=== PATIENT | male | born 1970 | race African-American/Black ===

== ENCOUNTER 2021-03-27 19:09 | Emergency (ER) | payer MEDICAID, OTHER ==
[2021-03-27] MEDS ORDERED: Triamcinolone Acetonide 0.1% Crm 15 GM Tube TOP ONE (19:33)
--- NOTE | 2021-03-27 19:43 | EDM.PDOC ---
ED HPI GENERAL MEDICAL PROBLEM - General Chief Complaint: Skin Complaint Stated Complaint: ARMS AND LEGS ITCHING, POSSIBLE BUG BITES Time Seen by Provider: 03/27/21 19:24 - History of Present Illness INITIAL COMMENTS - FREE TEXT/NARRATIVE: CHIEF COMPLAINT(S): Rash HISTORY OF PRESENT ILLNESS: This is a 50-year-old man without any reported significant past medical history who comes to the emergency department with a chief complaint of rash. The patient states that for approximately 2 days now with me experiencing a painful itchy rash located in 3 spots 1 on his right neck, left posterior arm and left calf. He states the area are painful and rates them currently is 0 out of 10 but when you touch them it is about 2 out of 10. There is no radiation of this pain. He states that there was no exacerbating relieving factors. He does not know why he has this rash. He states that he was concerned about bedbugs so they moved him in a different room at his hotel. He states that these areas itch and he keeps wanting to scratch them. He denies any sore throat, drooling, wheezing, shortness of breath, abdominal pain, nausea or vomiting. He states that he is not in any new medications. He has tried Tylenol without any relief. REVIEW OF SYSTEMS: Constitutional: Denies fever, chills. Eyes: Denies eye pain Ears, Nose, Mouth, & Throat: Denies earache Cardiovascular: Denies chest pain Respiratory: Denies shortness of breath Gastrointestinal: Denies Nausea, vomiting, diarrhea, hematochezia. Genitourinary: Denies hematuria Skin: Positive for itching burning painful rash to the patient's right neck, left posterior arm and left calf MSK: Denies joint pain Neurological: Denies blurred vision, numbness, tingling, weakness Psychiatric: Denies depression PAST MEDICAL HISTORY: As per history of present illness and as reviewed below otherwise noncontributory. SURGICAL HISTORY: As per history of present illness and as reviewed below otherwise noncontributory. SOCIAL HISTORY: As per history of present illness and as reviewed below otherwise noncontributory. FAMILY HISTORY: As per history of present illness and as reviewed below otherwise noncontributory. EXAMINATION OF ORGAN SYSTEMS/BODY AREAS: Constitutional: Blood pressure is 131/71, heart rate 86, respiratory rate 20 with an oxygen saturation 95% on room air. Temperature 36.6 General: Well-appearing man who is in no acute distress Psychiatric: Appropriate mood and affect. Eyes: No scleral icterus or conjunctival erythema ENMT: Moist mucous membranes. No pharyngeal erythema no stridor, drooling, trismus Cardiovascular: Regular, rate, and rhythm. No gallops, murmurs, or rubs. Bilateral upper extremity pulses symmetric and intact. Respiratory: Lungs clear to auscultation bilaterally. No wheezes, rales, or rhonchi. Gastrointestinal: Soft, non-tender, non-distended. Normoactive bowel sounds Genitourinary: No suprapubic tenderness Musculoskeletal: Normal range of motion. Skin: The patient has 3 tiny red bumps one located on his right neck, left posterior arm and left calf which are tender to palpation. There is no evidence of any excoriations or erythema in between the webbing of his fingers or toes or in the antecubital fossa. There is no evidence of urticaria or any other abnormality on the patient's body Neurological: Alert, GCS 15 MEDICAL DECISION MAKING AND COURSE IN THE ED WITH INTERPRETATION/REVIEW OF DIAGNOSTIC STUDIES: This is a 50-year-old man without any past medical history reported who comes to the emergency department with itchy burning rash that does not appear to be an allergic reaction. At this time it is uncertain as if this is a bedbug bite however the patient has already switched rooms at his hotel room. There is no evidence of bedbugs on the patient. At this time we will treat the patient symptomatically with triamcinolone cream. I did discuss the use of Benadryl with the patient. He was given strict return precautions. The patient was amenable to discharge and had no further questions DISPOSITION: The patient was discharged home in stable condition. The patient will follow up with dermatology within 3 to 5 days for reevaluation CONDITION: Fair PROCEDURES: None FINAL IMPRESSION(S)/DIAGNOSES: 1. Acute rash Randy Coats M.D. - Related Data Allergies Allergy/AdvReac Type Severity Reaction Status Date / Time aspirin Allergy Swelling Verified 03/27/21 19:23 ibuprofen Allergy Swelling Verified 03/27/21 19:23 NSAIDS (Non-Steroidal Allergy Swelling Verified 03/27/21 19:23 Anti-Inflamma Home Meds: Home Meds Emtricitabine/Tenofovir [Truvada 200 MG-300 MG] 200 mg PO DAILY 03/27/21 [History] Past Medical History - Past Health History Medical/Surgical History: Denies Medical/Surgical History Other Endocrine/Metabolic History: "pre diabetic" - Infectious Disease History Infectious Disease History: Reports: Hepatitis B Social & Family History - Family History Family Medical History: No Pertinent Family History - Tobacco Use Tobacco Use Status *Q: Never Tobacco User Second Hand Smoke Exposure: No - Caffeine Use Caffeine Use: Reports: Coffee - Recreational Drug Use Recreational Drug Use: No ED ROS GENERAL - Review of Systems Review Of Systems: See Below ED EXAM, GENERAL - Physical Exam Exam: See Below Course - Vital Signs Last Recorded V/S: Last Vital Signs Temp 36.6 C 03/27/21 19:21 Pulse 88 03/27/21 19:21 Resp 14 03/27/21 19:21 BP 135/72 03/27/21 19:21 Pulse Ox 96 03/27/21 19:21 - Orders/Labs/Meds Meds: Medications Discontinued Medications Generic Name Dose Route Start Last Admin Trade Name Bailey PRN Reason Stop Dose Admin Triamcinolone Acetonide 15 gm 03/27/21 19:33 Triamcinolone Acetonide 0.1% Crm 15 Gm Tube TOP 03/27/21 19:34 ONETIME ONE Departure - Departure Time of Disposition: 19:41 Disposition: Home, Self-Care 01 Condition: Fair Clinical Impression: Rash and nonspecific skin eruption - Discharge Information *PRESCRIPTION DRUG MONITORING PROGRAM REVIEWED*: No *COPY OF PRESCRIPTION DRUG MONITORING REPORT IN PATIENT JAVIER: No Instructions: Rash, Adult Additional Instructions: You were evaluated today on an emergent basis. Please apply the triamcinolone cream 2-4 times a day until symptoms improve. As discussed it is important that you evaluate your living situation and if there are evidence of bedbugs that you let the hotel know. You may use Benadryl 25 mg by mouth or by over-the-c ounter Benadryl cream to use every 6 hours for itching. If you have any worsening of your symptoms you are welcome to return to the emergency department. Otherwise please follow-up with the chocolate finisher in 3 to 5 days [facility] [address], [address] [place] [id number] [phone] The patient is informed of any results of their evaluation and diagnostic workup and all questions are answered. They are given discharge instructions and return precautions. The patient is stable for discharge. The patient states they understand and agree with the plan and that they will return if their symptoms get worse or if they have any new concerns. The following information is given to patients seen in the emergency department who are being discharged to home. This information is to outline your options for follow-up care. We provide all patients seen in our emergency department with a follow-up referral. The need for follow-up, as well as the timing and circumstances, are variable depending upon the specifics of your emergency department visit. If you don't have a primary care physician on staff, we will provide you with a referral. We always advise you to contact your personal physician following an emergency department visit to inform them of the circumstance of the visit and for follow-up with them and/or the need for any referrals to a consulting specialist. The emergency department will also refer you to a specialist when appropriate. This referral assures that you have the opportunity for follow-up care with a specialist. All of these measure are taken in an effort to provide you with optimal care, which includes your follow-up. Under all circumstances we always encourage you to contact your private physician who remains a resource for coordinating your care. When calling for follow-up care, please make the office aware that this follow-up is from your recent emergency room visit. If for any reason you are refused follow-up, please contact the Emergency Department at and asked to speak to the emergency department charge nurse. Sepsis Event Note (ED) - Evaluation Sepsis Screening Result: No Definite Risk - Focused Exam Vital Signs: Vital Signs Temp Pulse Resp BP Pulse Ox 03/27/21 19:21 36.6 C 88 14 135/72 96
== END 2021-03-27 20:52 | disposition home or self-care (01) ==
LOC: MW.ED 19:09
DX: R21 Rash and other nonspecific skin eruption (principal); Z88.6 Allergy status to analgesic agent; Z88.8 Allergy status to other drugs, medicaments and biological substances
CPT/HCPCS: 99282; A9270